=== PATIENT | female | born 1985 | race Caucasian/White ===

== ENCOUNTER 2021-06-18 16:32 | Emergency (ER) | payer OTHER ==
[~2021-06-18] VITALS: Ht 147.3 cm; Wt 73.5 kg
[2021-06-18 16:42] VITALS: BP 158/96
[2021-06-18] MEDS ORDERED: HYDROXYZINE HYDROCHLORIDE 25 MG TAB PO ONE (17:40)
[2021-06-18 18:05] LABS: BASOPHILS # (AUTO) 0.1 K/uL (0.00-0.22); BASOPHILS % (AUTO) 0.9 % (0.0-2.0); EOSINOPHILS % (AUTO) 0.6 % (0.0-4.0); HEMOGLOBIN 11.9 g/dL (12.0-16.0); LYMPHOCYTES % (AUTO) 23.6 % (20.5-51.1); MEAN CORPUSCULAR HEMOGLOBIN 25 pg (27-31); MEAN CORPUSCULAR HGB CONC 33 g/dL (33-37); MEAN CORPUSCULAR VOLUME 76.6 fL (80-94); MONOCYTES # (AUTO) 0.5 K/uL (0.8-1.0); MONOCYTES % (AUTO) 6.2 % (1.7-9.3); NEUTROPHILS # (AUTO) 5.9 K/uL (1.8-7.7); NEUTROPHILS % (AUTO) 68.7 % (42.2-75.2); PLATELET COUNT (AUTO) 386 K/uL (140-450); RED BLOOD CELL COUNT(AUTO) 4.69 MIL/uL (4.20-5.40); RED CELL DISTRIBUTION WIDTH 14.5 % (11.6-13.7); WHITE BLOOD COUNT (AUTO) 8.6 K/uL (4.8-10.8)
[2021-06-18 18:27] LABS: ALBUMIN 4.3 g/dL (3.4-5.0); ANION GAP 14.4 (8-16); CARBON DIOXIDE 27.6 mmol/L (21-32); CREATININE 0.7 mg/dL (0.6-1.3); THYROID STIMULATING HORMONE 3.12 uIU/mL (0.34-3.74); TOTAL BILIRUBIN 0.2 mg/dL (0.0-1.0)
[2021-06-18] MEDS ORDERED: POTASSIUM CHLORIDE 10 MEQ TABER PO ONE (19:20)
[2021-06-18] MEDS ORDERED: HYDROXYZINE HYDROCHLORIDE 25 MG TAB ONE (19:30)
[2021-06-18] MEDS ORDERED: HYDR25CA1 PO (20:38)
[2021-06-18] MEDS ORDERED: LORazepam 0.5 MG TAB PO ONE (21:35)
[2021-06-18 22:23] VITALS: BP 158/96
--- NOTE | 2021-06-18 22:23 | NUR ---
Patient discharged with v/s stable. Written and verbal after care instructions given and explained. Patient alert, oriented and verbalized understanding of instructions. Ambulatory with steady gait. All questions addressed prior to discharge. ID band removed. Patient advised to follow up with PMD. Rx of VISTARIL given. Patient educated on indication of medication including possible reaction and side effects. Opportunity to ask questions provided and answered.
== END 2021-06-18 22:23 | disposition home or self-care (01) ==
LOC: MED 16:32
DX: F41.9 Anxiety disorder, unspecified (principal); E87.6 Hypokalemia; E07.9 Disorder of thyroid, unspecified
CPT/HCPCS: 36415; 80053; 84443; 84702; 85025; 99284